=== PATIENT | female | born 1975 | race Caucasian/White ===

== ENCOUNTER 2023-12-30 20:12 | Emergency (ER) | payer MEDICAID, OTHER ==
[~2023-12-30] VITALS: Ht 152.4 cm; Wt 69.0 kg
[2023-12-30 20:24] VITALS: TEMP 97.8; O2SAT 100
[2023-12-30 21:24] LABS: CHLORIDE 108 mEq/L (98-107); POTASSIUM 3.8 mEq/L (3.5-5.1)
[2023-12-30 21:25] LABS: CARBON DIOXIDE 26 mEq/L (21-32); SODIUM 141 mEq/L (136-145)
[2023-12-30 21:26] LABS: CALCIUM 10.6 mg/dL (8.7-10.4)
[2023-12-30 21:30] LABS: BASOPHILS % 0.3 % (0.0-2.0); CREATININE 0.9 mg/dL (0.6-1.0); GLUCOSE 108 mg/dL (70-105); HEMATOCRIT. 29.4 % (36.0-48.0); HEMOGLOBIN. 9.7 g/dL (12.0-16.0); LYMPHOCYTES % 19.2 % (20.0-50.0); MEAN CORPUSCULAR HEMOGLOBIN 30.1 pg (28.0-32.0); MEAN CORPUSCULAR VOLUME 91.1 fL (81.0-99.0); MEAN PLATELET VOLUME 8.2 fl (7.4-10.4); NEUTROPHILS % 72.5 % (40.0-76.0); PLATELET 313 x1000/uL (130-400); RED BLOOD CELL COUNT 3.22 mill/uL (4.2-5.4); RED CELL DISTRIBUTION WIDTH 14.2 % (11.6-14.6); WHITE BLOOD COUNT 6.1 x1000/uL (4.5-11.0)
[2023-12-30 21:31] LABS: INR 1.1; PROTHROMBIN TIME 11.8 sec (9.6-11.0); UREA NITROGEN BLOOD 14 mg/dL (9-23)
[2023-12-30 21:32] LABS: ALANINE AMINOTRANSFERASE 9 IU/L (10-49); ALBUMIN 4.6 g/dL (3.2-4.8); ASPARTATE AMINOTRANSFERASE 19 IU/L (<34)
[2023-12-30 21:33] LABS: BILIRUBIN DIRECT 0.1 mg/dL (<=3.0); BILIRUBIN TOTAL 0.3 mg/dL (0.1-1.0); PROTEIN TOTAL 7.9 g/dL (6.0-8.3)
[2023-12-30] MEDS: ONDANSETRON HCL 4MG/2ML INJ IV STA (21:39)
[2023-12-30] MEDS: KETOROLAC 30MG/ML VIAL IV STA (21:39)
[2023-12-30 21:41] LABS: HCG SCREEN NEGATIVE
[2023-12-30] MEDS ORDERED: SENN-371 MT (23:43)
[2023-12-30] MEDS ORDERED: DOCU-138 MT (23:43)
[2023-12-30] MEDS ORDERED: POLY17PO3 MT (23:43)
[2023-12-31 00:49] VITALS: BP 135/60; PULSE 86; RESP 18
== END 2023-12-31 00:53 | disposition home or self-care (01) ==
LOC: ER 20:12
DX: K59.00 Constipation, unspecified (principal)
CPT/HCPCS: 80076; 80048; 84703; 83690; 85025; 85610; 36415; 74176; 96374; 96375; 99285; J1885; J2405; Z7610 ×2